=== PATIENT | female | born 1985 | race Caucasian/White ===

== ENCOUNTER 2020-04-21 11:37 | Emergency (ER) | payer SELFPAY ==
[2020-04-21 11:38] VITALS: BP 114/63; PULSE 63; RESP 18; TEMP 37; O2SAT 99; BMI 23.8
[2020-04-21 11:49] VITALS: PULSE 60; RESP 14
--- NOTE | 2020-04-21 12:14 | ED_ITS ---
HPI - Nausea/Vomiting/Diarrhea General: Chief complaint: Nausea/Vomiting/Diarrhea Stated complaint: N/V R SIDE LOW BACK PAIN Time Seen by Provider: 04/21/20 11:49 History of Present Illness: HPI Narrative: 34-year-old female presents with nausea and vomiting. She states she frequently has intermittent nausea and vomiting she relates it to uterine fibroid but she was recently diagnosed with. She was in [place] when this was first diagnosed she is moved since then to this area and has not been able to get insurance so she has not been able to do with it she previously had a myomectomy in her uterine ablation when she had another uterine fibroid. She has seen a chicken tender in [facility] they were doing some evaluation and ultrasound but did not plan any definitive treatment. She denies any fevers not had any vaginal bleeding is not had period since a uterine ablation. She denies any respiratory symptoms she is concerned she may have a bladder infection is. MD elicited complaint: nausea and vomiting Pertinent past history: other (Uterine fibroid) Onset (ago): day(s) Description of vomiting: bilious Associated nausea: Yes Associated abdominal pain: Yes Location of pain: Pelvis Radiation: right flank and other (back) Pain consistency: intermittent Severity: moderate Quality: cramping Associated symtoms: Reports nausea; Denies bloating, chest pain, cough, diaphoresis, decreased urine output, dizziness, dysuria, epistaxis, fatigue, fecal incontinence, fevers/chills, headache(s), anorexia, malaise, myalgias, numbness, palpitations, short of breath, syncope or weakness Review of Systems Const: Denies: fatigue, malaise or diaphoresis ENMT: Denies: epistaxis Card: Denies: chest pain, palpitations or syncope Resp: Denies: dyspnea, productive cough or non-productive cough GI: Reports: nausea; Denies: bloating or fecal incontinence : Denies: dysuria Skin/Breast: Denies: rash or pruritus Neuro: Denies: headache(s) or dizziness PFSH ED PFSH: Medical History (Updated 04/21/20 @ 13:16 by Carl Liu DO) No significant past medical history Surgical History (Updated 04/21/20 @ 12:55 by Carl Liu DO) H/O tubal ligation History of endometrial ablation Hx of cholecystectomy S/P myomectomy Social History (Updated 04/21/20 @ 12:55 by Carl Liu DO) Smoking and tobacco status: current every day smoker cigarettes Packs smoked per day: 1 Alcohol intake: current Alcohol intake frequency: 0-2 Drinks per Day Alcohol type: beer Alcohol use comment: Former heavy drinker Physical Exam Const: COMMON NORMALS: no acute distress GENERAL APPEARANCE: cooperative and comfortable ORIENTATION/CONSCIOUSNESS: Yes awake, Yes oriented to person, Yes oriented to place and Yes oriented to time HENMT: COMMON NORMALS: normocephalic, atraumatic and hearing grossly normal bilaterally HEAD & SCALP: normocephalic and atraumatic Eye: COMMON NORMALS: Equal, round and reactive pupils present, EOMs intact bilaterally, conjunctivae normal and no scleral icterus CONJUNCTIVA: Yes conjunctivae normal PUPIL: Yes Equal, round and reactive pupils present Neck/C-Spine: COMMON NORMALS: full ROM, no lymphadenopathy, supple and no JVD Lymph: LYMPHATIC: no lymphadenopathy noted and no lymphedema noted Resp: COMMON NORMALS: normal respiratory effort, No retractions, No use of accessory muscles and clear to auscultation bilaterally AUSCULTATION: clear to auscultation bilaterally Cardio: COMMON NORMALS: no JVD, regular rate, regular rhythm and No murmurs present (Cardio) RATE: regular rate RHYTHM: regular rhythm GI: COMMON NORMALS: Soft to palpation and No hepatosplenomegaly present AUSCULTATION: Yes normoactive bowel sounds PALPATION: Yes Soft to palpation, No Tenderness to palpation present (GI), No Guarding due to palpation present (GI) and Yes No hepatosplenomegaly present Extremity: COMMON NORMALS: normal to inspection, capillary refill normal, no clubbing, cyanosis or edema, no calf tenderness and no pedal edema Neuro: SENSORIUM/ORIENTATION: Yes oriented to person, Yes oriented to place and Yes oriented to time Skin: COMMON NORMALS: no rashes or lesions noted GENERAL SKIN EXAM: no rashes or lesions noted Course Vital Signs: Vital signs: Vital Signs Temperature 98.6 F 04/21/20 11:38 Pulse Rate 53 L 04/21/20 13:24 Respiratory Rate 14 04/21/20 13:24 Blood Pressure 98/60 04/21/20 13:24 Pulse Oximetry 99 04/21/20 13:24 MDM - Nausea/Vomiting/Diarrhea MDM Narrative: Medical decision making narrative: Reviewed findings with the patient. There was no uterine fibroid noted on exam with ultrasound. Encourage fluids we will give her Zofran to use PRN and recommend that she follow-up with her primary care doctor to get referred to INSIDE SALES ACCOUNT EXECUTIVE. Return if needed. Lab Data: Labs: Lab Results 04/21/20 04/21/20 04/21/20 Range/Units 11:20 11:20 11:50 WBC 8.7 (4.0-10.0) 10^3/ uL RBC 5.10 (4.1-5.3) 10^6/u L Hgb 11.3 L (11.5-15.3) g/dL Hct 38.7 (37.0-47.0) % MCV 75.9 L (81-99) fL MCH 22.2 L (28.0-34.0) pg MCHC 29.2 L (30.0-36.0) g/dL RDW 18.1 H (12.1-15.1) % Plt Count 236 (130-400) 10^3/c mm MPV 11.5 H (7.4-10.4) fL Neut % (Auto) 62.6 % Lymph % (Auto) 26.9 % [place] % (Auto) 6.6 % Eos % (Auto) 2.7 % Baso % (Auto) 1.0 % Neut # (Auto) 5.46 (1.8-7.7) 10^3/u L Lymph # (Auto) 2.4 (0.8-4.8) 10^3/u L [place] # (Auto) 0.6 (0.2-0.9) 10^3/u L Eos # (Auto) 0.2 (0.0-0.8) 10^3/u L Baso # (Auto) 0.1 (0.0-0.1) 10^3/u L Nucleated RBC % (a uto) 0 % Nucleated RBCs # 0.0 /100WBC Sodium 139 (136-145) mmol/L Potassium 4.6 (3.5-5.1) mmol/L Chloride 106 (98-107) mmol/L Carbon Dioxide 26 (22-29) mmol/L Anion Gap 11.6 (5-19) BUN 20 (6-20) mg/dL Creatinine 0.8 (0.5-0.9) mg/dL GFR Calculation 81.2 L (90-130) mL/min Glucose 90 (65-115) mg/dL Calculated Osmolal ity 284 L (285-295) mOsm/k g Calcium 9.2 (8.5-10.5) mg/dL Total Bilirubin 0.2 (0.15-1.2) mg/dL AST 21 (0-32) U/L ALT 10 (0-33) U/L Alkaline Phosphata se 52 (35-105) IU/L Total Protein 6.9 (6.6-8.7) g/dL Albumin 4.2 (3.5-5.2) g/dL Globulin 2.7 (1.3-4.6) g/dL Urine Color Straw (Yellow) Urine Appearance Clear (CLEAR) Urine pH 8 H (5-7) Ur Specific Gravit y 1.010 (1.005-1.030) Urine Protein Neg (Negative) Urine Glucose (UA) Norm (Normal) Urine Ketones Negative (Negative) Urine Blood Neg (Negative) Urine Nitrate Negative (Negative) Urine Bilirubin Neg (NEGATIVE) Prot Sulfosalicyli c Acd Negative (Negative) Urine Urobilinogen Norm (Negative) mg/dL Ur Leukocyte Hattie ase Negative (Negative) Discharge Plan Discharge Patient Disposition: Home Clinical Impression: Nausea & vomiting Condition: Stable Prescriptions: New Zofran 4 mg tablet 4 mg PO Q6H PRN (Reason: nausea and vomiting) Qty: 20 RF: 0 Discharge Orders: Discharge Order (Routine); Ordered 04/21/20 Ordered By: Carl Liu Discharge Diet: Usual diet Discharge Activity: Increase activity as tolerated Activity Restrictions/Additional Instructions: Case management will call to help you establish with a primary care provider Discharge Date/Time: 04/21/20 13:24 Coding Level of Care Code ED Lawn Care Specialist for Obed Fwd Exam Comprehensive
[2020-04-21] MEDS: sodium chloride 0.9% 1,000 ML 999 ML IV (12:17)
[2020-04-21] MEDS: ondansetron 2 mg/ML SDV 2 mL 4 MG IVP (12:17)
[2020-04-21] MEDS: ketorolac 30 mg/mL INJ IVP (12:17)
[2020-04-21 12:20] LABS: Add Urine Microscopic? NO
[2020-04-21 12:28] LABS: Basophils # 0.1 10^3/uL (0.0-0.1); Eosinophils # 0.2 10^3/uL (0.0-0.8); Eosinophils % 2.7 %; Hematocrit 38.7 % (37.0-47.0); Hemoglobin 11.3 g/dL (11.5-15.3); Lymphocytes # 2.4 10^3/uL (0.8-4.8); Lymphocytes % 26.9 %; Mean Corpuscular HGB Conc 29.2 g/dL (30.0-36.0); Mean Corpuscular Hemoglobin 22.2 pg (28.0-34.0); Mean Corpuscular Volume 75.9 fL (81-99); Mean Platelet Volume 11.5 fL (7.4-10.4); Monocytes # 0.6 10^3/uL (0.2-0.9); Monocytes % 6.6 %; Neutrophils # 5.46 10^3/uL (1.8-7.7); Neutrophils % 62.6 %; Nucleated Red Blood Cells % 0 %; Platelet Count 236 10^3/cmm (130-400); Red Cell Distribution Width 18.1 % (12.1-15.1); White Blood Count 8.7 10^3/uL (4.0-10.0)
[2020-04-21 12:29] LABS: Bilirubin Urine Neg (NEGATIVE); Blood Urine Neg (Negative); Glucose Urine UA Norm (Normal); Ketones Urine Negative (Negative); Leukocyte Esterase Urine Negative (Negative); Nitrate Urine Negative (Negative); Protein Urine Neg (Negative); Sulfosalicylic Acid Urine Negative (Negative); Urine Appearance Clear (CLEAR); Urine Color Straw (Yellow); Urobilinogen Urine Norm (Negative); pH Urine 8 (5-7)
[2020-04-21 12:37] LABS: Alanine Aminotransferase 10 U/L (0-33); Albumin Level 4.2 g/dL (3.5-5.2); Alkaline Phosphatase 52 IU/L (35-105); Blood Urea Nitrogen 20 mg/dL (6-20); Calcium 9.2 mg/dL (8.5-10.5); Carbon Dioxide 26 mmol/L (22-29); Chloride 106 mmol/L (98-107); Creatinine Clr Calc Pharmacy 82.3329; Globulin 2.7 g/dL (1.3-4.6); Glomerular Filtration Rate 81.2 mL/min (90-130); Glucose 90 mg/dL (65-115); Osmolality Calculated 284 mOsm/kg (285-295); Sodium 139 mmol/L (136-145); Total Bilirubin 0.2 mg/dL (0.15-1.2); Total Protein 6.9 g/dL (6.6-8.7)
--- NOTE | 2020-04-21 12:40 | US_ITS ---
WS: [id number] ULTRASOUND PELVIS TECHNIQUE: Transabdominal. CLINICAL INFORMATION: pelvic pain LMP: : No. COMPARISON: None. FINDINGS: Uterus Orientation: Anteverted. Size: 7.36 cm x 5.4 cm x 3.3 cm Masses: None. Endometrium: Normal. Endometrium thickness: 0.8 cm. Adnexa: Normal. Right ovary size: 3.1 cm x 1.9 cm x 1.8 cm. Right ovary volume: 5.6 ccm3 Left ovary size: 3.2 cm x 3.0 cm x 2.5 cm. Left ovary volume: 12.6 ccm3 Free fluid: None. Other findings: None. US/US pelvic complete* [id number] IMPRESSION: Normal pelvic ultrasound
[2020-04-21 12:43] LABS: Anion Gap 11.6 (5-19); Aspartate Amino Transferase 21 U/L (0-32); Potassium 4.6 mmol/L (3.5-5.1)
[2020-04-21 13:24] VITALS: BP 98/60; PULSE 53; RESP 14; O2SAT 99
--- NOTE | 2020-04-21 15:25 | DCPLANNER ---
is project manager had message to speak with patient about getting a primary care physician. is project manager called number in patients chart , a recording stated that this was not a working number. No one answered the phone, and unabel to leave a voicemail for patient at this time.
== END 2020-04-21 13:24 | disposition home or self-care (01) ==
PROVIDERS: Emergency Provider Family Medicine
DX: R11.2 Nausea with vomiting, unspecified (principal); F17.210 Nicotine dependence, cigarettes, uncomplicated
CPT/HCPCS: 12345; 76856; 80053; 81003; 85025; 96361; 96374; 96375; 99283; J1885; J2405; J7030

== ENCOUNTER 2024-07-15 14:28 | Emergency (ER) | payer MEDICAID, SELFPAY ==
[2024-07-15 14:35] VITALS: BP 115/77; PULSE 75; RESP 17; TEMP 36.6; O2SAT 100; BMI 23.8
== END 2024-07-15 16:19 | disposition left against medical advice (07) ==
PROVIDERS: Emergency Provider Family Medicine
DX: Z53.21 Procedure and treatment not carried out due to patient leaving prior to being seen by health care provider (principal); R11.2 Nausea with vomiting, unspecified

== ENCOUNTER 2024-07-19 02:25 | Emergency (ER) | payer SELFPAY ==
[2024-07-19 02:26] VITALS: BP 109/52; PULSE 64; RESP 16; TEMP 36.7; O2SAT 98; BMI 23.8
--- NOTE | 2024-07-19 02:39 | XRR_ITS ---
PROCEDURE INFORMATION: Exam: XR Right Hand Exam date and time: 07/19/2024 2:43 AM Age: 38 years old Clinical indication: Pain; Hand; Right; Additional info: Fall pain TECHNIQUE: Imaging protocol: Radiologic exam of the right hand. Views: 3 or more views. COMPARISON: No relevant prior studies available. FINDINGS: Bones/joints: Fourth metacarpal head fracture without significant displacement. No definite extension into the 4th metacarpophalangeal joint. No dislocation. Soft tissues: Soft tissue swelling. XR/XR hand RT min 3V* [id number] IMPRESSION: Acute 4th metacarpal head fracture.
--- NOTE | 2024-07-19 02:42 | W.ED.NAVMDI ---
HPI - Nausea/Vomiting/Diarrhea General: Chief complaint: Nausea/Vomiting/Diarrhea Stated complaint: n/v Time Seen by Provider: 07/19/24 02:26 History of Present Illness: Patient arrives by EMS for complaints of nausea vomiting x 3 hours. She said she has had multiple episodes. No abdominal pain. Patient is not taking any medicine. No diarrhea constipation coughs colds fevers chills etc. Says she fell out of her camper and tried to catch herself with her right hand. And she think she broke her right hand. Related Data Previous Rx's Medication Instructions Recorded ondansetron HCl 4 mg tablet 4 mg PO Q6H PRN nausea and 04/21/20 (Zofran) vomiting #20 tabs ciprofloxacin HCl 500 mg tablet 500 mg PO Q12H #20 tabs 07/19/24 ondansetron HCl 4 mg tablet 4 mg PO Q8H PRN nausea and 07/19/24 vomiting #14 tabs Allergies Allergy/AdvReac Type Severity Reaction Status Date / Time haloperidol [From Haldol] Allergy Unknown Verified 07/19/24 02:29 Review of Systems General: Reports: 10 or more systems reviewed and unremarkable except in HPI and below PFSH ED PFSH: Medical History No significant past medical history Surgical History Hx of cholecystectomy H/O tubal ligation S/P myomectomy History of endometrial ablation Social History Smoking and tobacco/nicotine status: current every day tobacco/nicotine user cigarettes Packs smoked per day: 1 Alcohol intake: current Alcohol intake frequency: 0-2 Drinks per Day Alcohol type: beer Physical Exam Const: COMMON NORMALS: no acute distress, average body habitus, patient oriented x3, no limitations, healthy appearing, alert and well nourished HENMT: COMMON NORMALS: normocephalic, atraumatic, hearing grossly normal bilaterally, external ears normal, Normal external nose present and moist oral mucous membranes HEAD & SCALP: normocephalic and atraumatic NOSE: Normal external nose present EXTERNAL EAR: Yes external ears normal Neck/C-Spine: COMMON NORMALS: no JVD Chest: COMMONS NORMALS: normal inspection of the chest and normal palpation of entire chest wall Resp: COMMON NORMALS: normal respiratory effort, No retractions, No use of accessory muscles and clear to auscultation bilaterally AUSCULTATION: clear to auscultation bilaterally Cardio: COMMON NORMALS: no JVD, regular rate, regular rhythm, S1 normal heart sound present, S2 normal heart sound present, No gallops present (Cardio), No clicks present (Cardio), No murmurs present (Cardio) and No rub (Cardio) RATE: regular rate RHYTHM: regular rhythm HEART SOUNDS: S1 normal heart sound present and S2 normal heart sound present GI: COMMON NORMALS: Normal to inspection, nondistended, normoactive bowel sounds present, Soft to palpation, non-tender, No hepatosplenomegaly present and no masses PALPATION: Yes Soft to palpation and Yes No hepatosplenomegaly present Extremity: NARRATIVE EXTREMITY EXAM: Right hand area metacarpal region tender to palpate no obvious crepitus deformity, minimal swelling Neuro: COMMON NORMALS: patient oriented x3 SENSORIUM/ORIENTATION: Yes alert Course Vital Signs: Vital signs: Vital Signs Temperature 98.0 F 07/19/24 02:26 Pulse Rate 62 07/19/24 03:03 Respiratory Rate 16 07/19/24 03:03 Blood Pressure 109/52 07/19/24 02:26 Pulse Oximetry 99 07/19/24 03:03 Oxygen Delivery Me thod Room Air 07/19/24 02:26 MDM - Nausea/Vomiting/Diarrhea Medical Decision Making Patient was given 4 mg Zofran which controlled her nausea during her entire stay. White count was elevated 23, urine did show positive for leukocyte Estrace. Patient was given Cipro. X-ray was obtained of her right hand which showed acute fourth metacarpal head fracture. Patient was placed in ulnar gutter splint and will be referred to Ortho. Prescription will be sent to her pharmacy for Cipro. Medical Records I reviewed the patient's medical records. Lab Data I reviewed the patient's lab results. 07/19/24 03:09 07/19/24 03:09 Radiology Impressions Hand X-Ray 07/19/24 02:39 IMPRESSION: Acute 4th metacarpal head fracture. Laboratory Results WBC 23.12 10^3/uL (3.29-11.43) H 07/19/24 03:09 RBC 5.15 10^6/uL (3.85-5.65) 07/19/24 03:09 Hgb 14.70 g/dL (11.27-16.99) 07/19/24 03:09 Hct 45.6 % (36-47) 07/19/24 03:09 MCV 88.5 fl (85-98) 07/19/24 03:09 MCH 28.5 pg (27-33) 07/19/24 03:09 MCHC 32.2 g/dL (30-55) 07/19/24 03:09 RDW 13.7 % (12.1-15.1) 07/19/24 03:09 Plt Count 285 10^3/cmm (157-399) 07/19/24 03:09 MPV 10.3 fL (7.4-10.4) 07/19/24 03:09 Neut % (Auto) 84.7 % 07/19/24 03:09 Lymph % (Auto) 6.2 % 07/19/24 03:09 [place] % (Auto) 6.3 % 07/19/24 03:09 Eos % (Auto) 1.9 % 07/19/24 03:09 Baso % (Auto) 0.3 % 07/19/24 03:09 Neut # (Auto) 19.59 10^3/uL (1.8-7.7) H 07/19/24 03:09 Lymph # (Auto) 1.4 10^3/uL (0.8-4.8) 07/19/24 03:09 [place] # (Auto) 1.5 10^3/uL (0.2-0.9) H 07/19/24 03:09 Eos # (Auto) 0.4 10^3/uL (0.0-0.8) 07/19/24 03:09 Baso # (Auto) 0.1 10^3/uL (0.0-0.1) 07/19/24 03:09 Nucleated RBC % (auto) 0 % 07/19/24 03:09 Nucleated RBCs # 0.0 /100WBC 07/19/24 03:09 Sodium 138 mmol/L (136-145) 07/19/24 03:09 Potassium 4.0 mmol/L (3.5-5.1) 07/19/24 03:09 Chloride 101 mmol/L (98-107) 07/19/24 03:09 Carbon Dioxide 26 mmol/L (22-29) 07/19/24 03:09 Anion Gap 15.0 (5-19) 07/19/24 03:09 BUN 15 mg/dL (6-20) 07/19/24 03:09 Creatinine 0.7 mg/dL (0.5-0.9) 07/19/24 03:09 GFR Calculation 92.7 mL/min (90-130) 07/19/24 03:09 Glucose 105 mg/dL (65-115) 07/19/24 03:09 Calculated Osmolality 287 mOsm/kg (285-295) 07/19/24 03:09 Calcium 8.8 mg/dL (8.5-10.5) 07/19/24 03:09 Magnesium 1.9 mg/dL (1.7-2.3) 07/19/24 03:09 Total Bilirubin 0.5 mg/dL (0.15-1.2) 07/19/24 03:09 AST 26 U/L (0-32) 07/19/24 03:09 ALT 17 U/L (0-33) 07/19/24 03:09 Alkaline Phosphatase 64 U/L (35-105) 07/19/24 03:09 Total Protein 7.5 g/dL (6.6-8.7) 07/19/24 03:09 Albumin 4.4 g/dL (3.5-5.2) 07/19/24 03:09 Globulin 3.1 g/dL (1.3-4.6) 07/19/24 03:09 Urine Color Yellow (Yellow) 07/19/24 03:13 Urine Appearance Turbid (CLEAR) A 07/19/24 03:13 Urine pH 7.0 (5-7) 07/19/24 03:13 Ur Specific [place] 1.019 (1.005-1.030) 07/19/24 03:13 Urine Protein Negative (Negative) 07/19/24 03:13 Urine Glucose (UA) Negative (Normal) 07/19/24 03:13 Urine Ketones Negative (Negative) 07/19/24 03:13 Urine Blood Negative (Negative) 07/19/24 03:13 Urine Nitrate Positive (Negative) A 07/19/24 03:13 Urine Bilirubin Negative (Negative) 07/19/24 03:13 Urine Urobilinogen 1.0 mg/dL (Negative) 07/19/24 03:13 Ur Leukocyte Esterase Negative (Negative) 07/19/24 03:13 Urine RBC 0-2 /hpf (0-2) 07/19/24 03:13 Urine WBC 6-10 /hpf (0-5) 07/19/24 03:13 Ur Squamous Epith Cells 0-5 /hpf (0-5) 07/19/24 03:13 Amorphous Sediment Not Reportable 07/19/24 03:13 Urine Bacteria 4+ /hpf (NONE) H 07/19/24 03:13 Hyaline Casts 1.65 /lpf 07/19/24 03:13 All radiology interpretation(s) finalized by discharge Discharge Plan Discharge Patient Disposition: Home Clinical Impression: Gastroenteritis, Acute lower urinary tract infection Hand fracture, right Qualifiers: Encounter type: initial encounter Fracture type: closed Qualified Code(s): S62.91XA - Unspecified fracture of right wrist and hand, initial encounter for closed fracture Condition: Stable Prescriptions: New ondansetron HCl 4 mg tablet 4 mg PO Q8H PRN (Reason: nausea and vomiting) Qty: 14 0RF ciprofloxacin HCl 500 mg tablet 500 mg PO Q12H Qty: 20 0RF No Action Zofran 4 mg tablet 4 mg PO Q6H PRN (Reason: nausea and vomiting) Qty: 20 0RF Discharge Orders: Discharge ED (Routine); Ordered 07/19/24 Ordered By: Subhash Lemons Patient Instructions: Hand Fracture (ED), Acute Nausea and Vomiting (ED), Urinary Tract Infection - Women Activity Restrictions/Additional Instructions: He will be referred to case management to help you get an appoint with the orthopedics. They should be calling you later on this morning. Please wear your splint until seen by orthopedics. Please picking crew supervisor your prescription for the antinausea pill and antibiotic at the pharmacy and take them as directed. Coding Level of Care Code ED Highway Construction Inspector for Obed June
[2024-07-19 03:03] VITALS: PULSE 62; RESP 16; O2SAT 99
[2024-07-19 03:18] LABS: Basophils # 0.1 10^3/uL (0.0-0.1); Basophils % 0.3 %; Eosinophils # 0.4 10^3/uL (0.0-0.8); Eosinophils % 1.9 %; Hematocrit 45.6 % (36-47); Lymphocytes # 1.4 10^3/uL (0.8-4.8); Lymphocytes % 6.2 %; Mean Corpuscular HGB Conc 32.2 g/dL (30-55); Mean Corpuscular Hemoglobin 28.5 pg (27-33); Mean Corpuscular Volume 88.5 fl (85-98); Mean Platelet Volume 10.3 fL (7.4-10.4); Monocytes # 1.5 10^3/uL (0.2-0.9); Monocytes % 6.3 %; Neutrophils # 19.59 10^3/uL (1.8-7.7); Neutrophils % 84.7 %; Nucleated Red Blood Cells % 0 %; Platelet Count 285 10^3/cmm (157-399); Red Blood Count 5.15 10^6/uL (3.85-5.65); Red Cell Distribution Width 13.7 % (12.1-15.1); White Blood Count 23.12 10^3/uL (3.29-11.43)
[2024-07-19] MEDS: ondansetron 4 MG Tablet PO (03:18)
[2024-07-19 03:33] LABS: Bilirubin Urine Negative (Negative); Blood Urine Negative (Negative); Glucose Urine UA Negative (Normal); Ketones Urine Negative (Negative); Leukocyte Esterase Urine Negative (Negative); Nitrate Urine Positive (Negative); Protein Urine Negative (Negative); Specific Gravity, Urine 1.019 (1.005-1.030); Urine Appearance Turbid (CLEAR); Urine Color Yellow (Yellow)
[2024-07-19 03:38] LABS: Add Urine Microscopic? YES; Bacteria Urine 4+ /hpf; Hyaline Casts Urine 1.65 /lpf; RBC Urine 0-2 /hpf (0-2); Squamous Epithelial Cell Urine 0-5 /hpf (0-5)
[2024-07-19 03:39] LABS: Alanine Aminotransferase 17 U/L (0-33); Albumin Level 4.4 g/dL (3.5-5.2); Alkaline Phosphatase 64 U/L (35-105); Aspartate Amino Transferase 26 U/L (0-32); Blood Urea Nitrogen 15 mg/dL (6-20); Calcium 8.8 mg/dL (8.5-10.5); Carbon Dioxide 26 mmol/L (22-29); Chloride 101 mmol/L (98-107); Creatinine Clr Calc Pharmacy 90.4758; Globulin 3.1 g/dL (1.3-4.6); Glomerular Filtration Rate 92.7 mL/min (90-130); Glucose 105 mg/dL (65-115); Magnesium 1.9 mg/dL (1.7-2.3); Osmolality Calculated 287 mOsm/kg (285-295); Sodium 138 mmol/L (136-145); Total Bilirubin 0.5 mg/dL (0.15-1.2); Total Protein 7.5 g/dL (6.6-8.7)
[2024-07-19 03:42] LABS: Add Urine Culture? Yes
[2024-07-19 04:00] VITALS: BP 112/58; PULSE 58; O2SAT 99
[2024-07-19] MEDS: ciprofloxacin 500 mg Tablet PO (04:07)
[2024-07-19 06:29] VITALS: BP 109/67; PULSE 75; O2SAT 99
--- NOTE | 2024-07-19 07:25 | DCPLANNER ---
messaged ortho for er f/u
== END 2024-07-19 07:00 | disposition home or self-care (01) ==
PROVIDERS: Emergency Provider Emergency Medicine
DX: K52.9 Noninfective gastroenteritis and colitis, unspecified (principal); N39.0 Urinary tract infection, site not specified; S62.91XA Unspecified fracture of right hand, initial encounter for closed fracture; W19.XXXA Unspecified fall, initial encounter; F17.210 Nicotine dependence, cigarettes, uncomplicated
CPT/HCPCS: 29125; 36415; 73130; 80053; 81001; 83735; 85025; 87077; 87086; 87186; 99284; Q0162

== ENCOUNTER 2024-07-23 06:00 | Outpatient (CLI) | payer SELFPAY | END 2024-07-23 23:59 | disposition home or self-care (01) | LOC: SPT 07-24 11:43 | PROVIDERS: Visit Provider Nurse Practitioner | DX: Z46.89 Encounter for fitting and adjustment of other specified devices (principal); S62.396D Other fracture of fifth metacarpal bone, right hand, subsequent encounter for fracture with routine healing; X58.XXXD Exposure to other specified factors, subsequent encounter | CPT/HCPCS: L3982 ==

== ENCOUNTER → 2024-07-23 15:14 | Outpatient (BNVA) | payer MEDICAID, SELFPAY | PROVIDERS: Visit Provider Nurse Practitioner | DX: S62.91XA Unspecified fracture of right hand, initial encounter for closed fracture (principal); X58.XXXA Exposure to other specified factors, initial encounter | CPT/HCPCS: 73130 ==

== ENCOUNTER 2024-10-01 11:46 | Emergency (ER) | payer SELFPAY ==
--- NOTE | 2024-10-01 11:49 | ECG_ITS ---
[employer] Test Date: 2024-10-01 Pat Name: Marielle Elizabeth Department: Room: Gender: Female Casing Inspector: : 1985 Requested By: Rivera Alvarez Order Number: [id number] Rajani MD: JESUS OTOOLE Measurements Intervals [place] Rate: 52 P: 70 OK: 148 QRS: 76 QRSD: 79 T: 69 QT: 467 QTc: 434 Interpretive Statements SINUS BRADYCARDIA MINIMAL VOLTAGE CRITERIA FOR LVH, CONSIDER NORMAL VARIANT [MEETS CRITERIA IN ONE OF: R(aVL), S(V1), R(V5), R(V5/V6)+S(V1)] No previous ECG available for comparison Electronically Signed On 10-01-2024 23:11:43 BOLOGNA LACER by JESUS OTOOLE [email or web address]
--- NOTE | 2024-10-01 11:49 | XRR_ITS ---
PROCEDURE INFORMATION: Exam: XR Chest Exam date and time: 10/01/2024 12:02 PM Age: 38 years old Clinical indication: Pain; Angina pectoris; Additional info: Cp TECHNIQUE: Imaging protocol: Radiologic exam of the chest. Views: 1 view. COMPARISON: No relevant prior studies available. FINDINGS: Lungs: Unremarkable. No consolidation. Pleural spaces: Unremarkable. No pleural effusion. No pneumothorax. Heart/Mediastinum: Unremarkable. No cardiomegaly. Bones/joints: Unremarkable. XR/XR chest 1V portable [id number] IMPRESSION: No acute findings.
--- NOTE | 2024-10-01 12:03 | ED_ITS ---
HPI - General Adult 2 General: Chief complaint: General Medical Stated complaint: Chest pain Time Seen by Provider: 10/01/24 11:47 Source: patient and EMS Mode of arrival: EMS Limitations: no limitations History of Present Illness: 38-year-old female who states that she w as smoking her THC vape pen roughly 30 minutes ago states the pen broke and she had inhaled some of the liquid THC. She states she immediately started having some sharp chest pains after that. She denies any shortness of breath states pain is currently 3 out of 10 is improved she denies any worse improved factors Associated symptoms: Reports chest pain; Deny dyspnea, headache(s), nausea, rash or vomiting Related Data Home Medications Medication Instructions Recorded Confirmed acetaminophen 500 mg tablet 1,000 mg PO QID PRN Pain 10/01/24 10/01/24 (Tylenol Extra Strength) Previous Rx's Medication Instructions Recorded ondansetron HCl 4 mg tablet 4 mg PO Q8H PRN nausea and 07/19/24 vomiting #14 tabs Right fast form ulnar gutter splint #1 ea 07/23/24 Allergies Allergy/AdvReac Type Severity Reaction Status Date / Time haloperidol [From Haldol] Allergy Unknown Verified 07/23/24 15:24 Review of Systems 2 Const: Denies: fever(s), chills, body aches or change in appetite ENMT: Denies: throat pain or dental pain Card: Reports: chest pain Resp: Denies: dyspnea GI: Denies: abdominal pain, nausea, vomiting or diarrhea Musc: Denies: neck pain or back pain Skin/Breast: Denies: rash Neuro: Denies: headache(s) PFSH ED 2 PFSH: Medical History No significant past medical history Surgical History Hx of cholecystectomy H/O tubal ligation S/P myomectomy History of endometrial ablation Social History Smoking and tobacco/nicotine status: current every day tobacco/nicotine user cigarettes Packs smoked per day: 1 Alcohol intake: current Alcohol intake frequency: 0-2 Drinks per Day Alcohol type: beer Physical Exam 2 Const: COMMON NORMALS: no acute distress, patient oriented x3 and healthy appearing HENMT: COMMON NORMALS: normocephalic and atraumatic HEAD & SCALP: n ormocephalic and atraumatic Neck/C-Spine: COMMON NORMALS: full ROM and supple Chest: COMMONS NORMALS: normal inspection of the chest and normal palpation of entire chest wall Resp: COMMON NORMALS: normal respiratory effort, No retractions, No use of accessory muscles and clear to auscultation bilaterally AUSCULTATION: clear to auscultation bilaterally Cardio: COMMON NORMALS: regular rate, regular rhythm and No murmurs present (Cardio) RATE: regular rate RHYTHM: regular rhythm Extremity: COMMON NORMALS: normal to inspection and full ROM Neuro: COMMON NORMALS: patient oriented x3, moves all extremities and no focal motor deficits Psych: COMMON NORMALS: mental status grossly normal, Normal thought process present and cooperative THOUGHT PROCESS: Normal thought process present Skin: COMMON NORMALS: no rashes or lesions noted and no wounds GENERAL SKIN EXAM: no rashes or lesions noted Course 2 Vital Signs: Vital signs: Vital Signs Temperature 97.6 F 10/01/24 12:04 Pulse Rate 55 L 10/01/24 12:04 Respiratory Rate 16 10/01/24 12:04 Blood Pressure 120/61 10/01/24 12:04 Pulse Oximetry 100 10/01/24 12:04 Oxygen Delivery Me thod Room Air 10/01/24 12:04 Clincial Decision Support The following clinical decision support tools were used to aid in care of the patient HEART Score -> History: Slightly Suspicous, EKG: Normal, Age: Less than 45 yrs, Risk Factors: No Risk Factors Known, Troponin: Baseline Trop <16 ng/L. Resulting HEART Score: 0. [facility] - General Adult Medical Decision Making Patient presents here with chest pains atypical in nature she has been well- appearing here pain for a EKG troponins are normal she has no signs of ACS no signs of pulm embolism. Medical Records I reviewed the patient's medical records. Lab Data I reviewed the patient's lab results. 10/01/24 12:03 10/01/24 12:03 Radiology Impressions Chest X-Ray 10/01/24 11:49 IMPRESSION: No acute findings. Laboratory Results WBC 8.69 10^3/uL (3.29-11.43) 10/01/24 12:03 RBC 5.32 10^6/uL (3.85-5.65) 10/01/24 12:03 Hgb 15.00 g/dL (11.27-16.99) 10/01/24 12:03 Hct 46.5 % (36-47) 10/01/24 12:03 MCV 87.4 fl (85-98) 10/01/24 12:03 MCH 28.2 pg (27-33) 10/01/24 12:03 MCHC 32.3 g/dL (30-55) 10/01/24 12:03 RDW 13.1 % (12.1-15.1) 10/01/24 12:03 Plt Count 244 10^3/cmm (157-399) 10/01/24 12:03 MPV 10.6 fL (7.4-10.4) H 10/01/24 12:03 Neut % (Auto) 49.5 % 10/01/24 12:03 Lymph % (Auto) 36.9 % 10/01/24 12:03 Stevens % (Auto) 4.5 % 10/01/24 12:03 Eos % (Auto) 8.1 % 10/01/24 12:03 Baso % (Auto) 0.9 % 10/01/24 12:03 Neut # (Auto) 4.30 10^3/uL (1.8-7.7) 10/01/24 12:03 Lymph # (Auto) 3.2 10^3/uL (0.8-4.8) 10/01/24 12:03 Stevens # (Auto) 0.4 10^3/uL (0.2-0.9) 10/01/24 12:03 Eos # (Auto) 0.7 10^3/uL (0.0-0.8) 10/01/24 12:03 Baso # (Auto) 0.1 10^3/uL (0.0-0.1) 10/01/24 12:03 Nucleated RBC % (auto) 0 % 10/01/24 12:03 Nucleated RBCs # 0.0 /100WBC 10/01/24 12:03 PT 12.60 SECONDS (12.1-14.9) 10/01/24 12:03 INR 0.88 (0.8-1.2) 10/01/24 12:03 Sodium 135 mmol/L (136-145) L 10/01/24 12:03 Potassium 3.6 mmol/L (3.5-5.1) 10/01/24 12:03 Chloride 99 mmol/L (98-107) 10/01/24 12:03 Carbon Dioxide 22 mmol/L (22-29) 10/01/24 12:03 Anion Gap 17.6 (5-19) 10/01/24 12:03 BUN 14 mg/dL (6-20) 10/01/24 12:03 Creatinine 0.6 mg/dL (0.5-0.9) 10/01/24 12:03 GFR Calculation 110.7 mL/min (90-130) 10/01/24 12:03 Glucose 109 mg/dL (65-115) 10/01/24 12:03 Calculated Osmolality 281 mOsm/kg (285-295) L 10/01/24 12:03 Calcium 9.5 mg/dL (8.5-10.5) 10/01/24 12:03 Total Bilirubin 0.6 mg/dL (0.15-1.2) 10/01/24 12:03 AST 41 U/L (0-32) H 10/01/24 12:03 ALT 23 U/L (0-33) 10/01/24 12:03 Alkaline Phosphatase 86 U/L (35-105) 10/01/24 12:03 Troponin T Baseline < 6 ng/L (0-10) 10/01/24 12:03 Troponin T 120 Minute 6.00 ng/L (0-10) 10/01/24 14:02 Delta Troponin T 0.55625 ABS# (0-10) 10/01/24 14:02 Total Protein 7.1 g/dL (6.6-8.7) 10/01/24 12:03 Albumin 4.5 g/dL (3.5-5.2) 10/01/24 12:03 Globulin 2.6 g/dL (1.3-4.6) 10/01/24 12:03 All radiology interpretation(s) finalized by discharge EKG Data EKG 1: I personally reviewed and interpreted this EKG as follows: EKG interpretation date: 10/01/24 EKG interpretation time: 11:50 Interpretation: sinus kanchan hr 52 nost elevation qrs 79 qtc 446 Computer generated interpretation: Chest X-Ray 10/01/24 11:49 IMPRESSION: No acute findings. EKG 2: I personally reviewed and interpreted this EKG as follows: EKG interpretation date: 10/01/24 EKG interpretation time: 13:50 Interpretation: nsr hr [address] elevation qrs 74 qtc 415 Computer generated interpretation: Chest X-Ray 10/01/24 11:49 IMPRESSION: No acute findings. Discharge Plan Discharge Patient Disposition: Home Clinical Impression: Chest pain Qualifiers: Chest pain type: unspecified Qualified Code(s): R07.9 - Chest pain, unspecified Condition: Stable Prescriptions: No Action (DME) Right fast form ulnar gutter splint See Rx Instructions .Route .MEDSUPPLY Qty: 1 0RF Rx Instructions: As directed ondansetron HCl 4 mg tablet 4 mg PO Q8H PRN (Reason: nausea and vomiting) Qty: 14 0RF acetaminophen [Tylenol Extra Strength] 500 mg Tablet 1,000 mg PO QID PRN (Reason: Pain) Discharge Orders: Discharge ED (Routine); Ordered 10/01/24 Ordered By: Rivera Alvarez Discharge Diet: Advance as tolerated Discharge Activity: Resume usual activity Patient Instructions: Chest Pain (ED) Coding Level of Care Code ED Laboratory Inspector for Obed June
[2024-10-01 12:04] VITALS: BP 120/61; PULSE 55; RESP 16; TEMP 36.4; O2SAT 100; BMI 23.8
[2024-10-01 12:14] LABS: Basophils # 0.1 10^3/uL (0.0-0.1); Basophils % 0.9 %; Eosinophils # 0.7 10^3/uL (0.0-0.8); Eosinophils % 8.1 %; Hematocrit 46.5 % (36-47); Lymphocytes # 3.2 10^3/uL (0.8-4.8); Lymphocytes % 36.9 %; Mean Corpuscular HGB Conc 32.3 g/dL (30-55); Mean Corpuscular Hemoglobin 28.2 pg (27-33); Mean Corpuscular Volume 87.4 fl (85-98); Mean Platelet Volume 10.6 fL (7.4-10.4); Monocytes # 0.4 10^3/uL (0.2-0.9); Monocytes % 4.5 %; Neutrophils % 49.5 %; Nucleated Red Blood Cells % 0 %; Platelet Count 244 10^3/cmm (157-399); Red Blood Count 5.32 10^6/uL (3.85-5.65); Red Cell Distribution Width 13.1 % (12.1-15.1); White Blood Count 8.69 10^3/uL (3.29-11.43)
[2024-10-01 12:22] LABS: INR 0.88 (0.8-1.2)
[2024-10-01 12:30] LABS: Troponin(5th) Baseline < 6 ng/L (0-10)
[2024-10-01 12:33] LABS: Alanine Aminotransferase 23 U/L (0-33); Albumin Level 4.5 g/dL (3.5-5.2); Alkaline Phosphatase 86 U/L (35-105); Anion Gap 17.6 (5-19); Aspartate Amino Transferase 41 U/L (0-32); Blood Urea Nitrogen 14 mg/dL (6-20); Calcium 9.5 mg/dL (8.5-10.5); Carbon Dioxide 22 mmol/L (22-29); Chloride 99 mmol/L (98-107); Globulin 2.6 g/dL (1.3-4.6); Glomerular Filtration Rate 110.7 mL/min (90-130); Glucose 109 mg/dL (65-115); Osmolality Calculated 281 mOsm/kg (285-295); Potassium 3.6 mmol/L (3.5-5.1); Sodium 135 mmol/L (136-145); Total Bilirubin 0.6 mg/dL (0.15-1.2); Total Protein 7.1 g/dL (6.6-8.7)
--- NOTE | 2024-10-01 13:49 | ECG_ITS ---
[facility] Test Date: 2024-10-01 Pat Name: Marielle Elizabeth Department: Room: Gender: Female Block Cuber: : 1985 Requested By: Rivera Alvarez Order Number: [id number] Reading MD: JESUS OTOOLE Measurements Intervals [place] Rate: 63 P: 68 WA: 153 QRS: 73 QRSD: 74 T: 67 QT: 408 QTc: 418 Interpretive Statements SINUS RHYTHM Compared to ECG 10/01/2024 11:50:52 Sinus bradycardia no longer present Electronically Signed On 10-01-2024 23:19:22 CASER by JESUS OTOOLE [email or web address]
[2024-10-01 14:25] LABS: Troponin 5 2HR Delta 0.00001 ABS# (0-10)
[2024-10-01 14:52] VITALS: PULSE 80
== END 2024-10-01 14:53 | disposition home or self-care (01) ==
PROVIDERS: Emergency Provider Emergency Medicine
DX: R07.9 Chest pain, unspecified (principal); F17.210 Nicotine dependence, cigarettes, uncomplicated
CPT/HCPCS: 36415; 71045; 80053; 84484; 85025; 85610; 93005; 99285